=== PATIENT | male | born 1990 | race Caucasian/White ===

== ENCOUNTER 2017-10-30 12:09 | Day surgery (SDC) | payer OTHER ==
[~2017-10-30] VITALS: Ht 162.6 cm; Wt 64.0 kg
[~2017-10-30 12:09] MED LIST: AMOX500 PO; Amoxicillin500 MG PO; Augmentin 875-1 EACH PO; CEPH500 PO; CYCL10 PO; HYDACE5 PO; IBUP600 PO; IBUP800 PO; MAGIC MOUTHWASH; NAPR500 PO; PENVK250 PO; PENVK500 PO; Percocet 5-3251 EACH PO; Roxicodone5 MG PO; TRAM50 PO
[2017-10-30] MEDS ORDERED: ALPR1 (13:13)
[2017-10-30 13:23] LABS: BASOPHILS ABSOLUTE AUTO 0.03 K/mm3 (0.00-0.23); BASOPHILS PERCENT AUTO 0 % (0-2); EOSINOPHILS ABSOLUTE AUTO 0.16 K/mm3 (0.00-0.68); EOSINOPHILS PERCENT AUTO 2 % (0-6); Hemoglobin 12.1 g/dL (13.5-17.5); IMMATURE GRAN ABSOLUTE AUTO 0.04 K/mm3 (0.00-0.10); IMMATURE GRAN PERCENT AUTO 0 % (0-1); LYMPHOCYTES ABSOLUTE AUTO 1.54 K/mm3 (0.84-5.20); LYMPHOCYTES PERCENT AUTO 14 % (21-46); MONOCYTES ABSOLUTE AUTO 0.51 K/mm3 (0.16-1.47); MONOCYTES PERCENT AUTO 5 % (4-13); Mean Corpuscular HGB 30.2 pg (26.0-34.0); Mean Corpuscular HGB Conc 35.6 g/dL (31.5-36.5); Mean Corpuscular Volume 85 fL (80-100); NEUTROPHILS PERCENT AUTO 79 % (41-73); Platelet Count 298 K/mm3 (150-400); RDW Coefficient Variation 12.4 % (11.7-14.2); RDW Standard Deviation 38.2 fL (35.1-46.3); Red Blood Cell Count 4.01 M/mm3 (4.30-5.90); White Blood Cell Count 10.68 K/mm3 (4.00-11.30)
[2017-10-30 14:03] LABS: Anion Gap 8 mmol/L (6-16); Blood Urea Nitrogen 9 mg/dL (8-24); Bun/Creatinine Ratio 9.8 (12.0-20.0); CO2, Blood 26 mmol/L (21-32); Calcium, Blood 8.8 mg/dL (8.5-10.1); Chloride, Blood 105 mmol/L (98-108); Creatinine, Blood 0.92 mg/dL (0.60-1.20); Glomerular Filtration Rate >60 (60-); Glucose, Blood 109 mg/dL (70-99); Potassium, Blood 3.5 mmol/L (3.5-5.5); Sodium, Blood 139 mmol/L (136-145)
== END 2017-10-30 17:43 | disposition home or self-care (01) ==
LOC: ORSCSDS 12:09
PROVIDERS: Podiatrist Foot & Ankle Surgery
PROC: 0QSK04Z Reposition Left Fibula with Internal Fixation Device, Open Approach (ICD-10-PCS; principal; 2017-10-30 13:30)
PROC: 0QSH04Z Reposition Left Tibia with Internal Fixation Device, Open Approach (ICD-10-PCS; principal; 2017-10-30 13:30)
DX: S82.851A Displaced trimalleolar fracture of right lower leg, initial encounter for closed fracture (principal); F17.210 Nicotine dependence, cigarettes, uncomplicated
CPT/HCPCS: 80048; 85025; C1713; J0171; J0690; J1885; J2250; J3010; J7120

== ENCOUNTER 2019-03-07 18:13 | Emergency (ER) | payer OTHER ==
[~2019-03-07] VITALS: Ht 162.6 cm; Wt 68.0 kg
[~2019-03-07 18:13] MED LIST changes: +ALPR1
== END 2019-03-07 20:43 | disposition home or self-care (01) ==
LOC: ER 18:13
DX: J02.9 Acute pharyngitis, unspecified (principal); F17.220 Nicotine dependence, chewing tobacco, uncomplicated; Z79.899 Other long term (current) drug therapy
CPT/HCPCS: 87081; 87430; 99282; A9270-GY; J1100

== ENCOUNTER 2020-07-18 19:34 | Emergency (ER) | payer OTHER ==
[~2020-07-18] VITALS: Ht 162.6 cm; Wt 81.7 kg
[2020-07-18] MEDS ORDERED: ONDA4ODT MM (22:36)
== END 2020-07-18 22:43 | disposition home or self-care (01) ==
LOC: ER 19:34
DX: K20.90 Esophagitis, unspecified without bleeding (principal); R11.2 Nausea with vomiting, unspecified; F17.220 Nicotine dependence, chewing tobacco, uncomplicated
CPT/HCPCS: 87081; 87430; 99284-25; A9270

== ENCOUNTER 2023-01-16 22:13 | Emergency (ER) | payer OTHER ==
[~2023-01-16] VITALS: Ht 162.6 cm; Wt 63.5 kg
[~2023-01-16 22:13] MED LIST changes: +ONDA4ODT MM
[2023-01-16 22:17] VITALS: BP 129/82
[2023-01-16] MEDS ORDERED: CEPH500 PO (22:23)
== END 2023-01-16 22:34 | disposition home or self-care (01) ==
LOC: ER 22:13
DX: L03.115 Cellulitis of right lower limb (principal); Z87.891 Personal history of nicotine dependence
CPT/HCPCS: 99283; A9270